=== PATIENT | male | born 1990 | race Caucasian/White ===

== ENCOUNTER 2017-02-22 11:17 | Emergency (ER) | payer BC ==
[2017-02-22 11:54] LABS: BASOPHILS % (AUTO) 0.4 %; EOSINOPHILS # (AUTO) 0.6 10^3/uL (0.0-0.7); EOSINOPHILS % (AUTO) 5.5 %; HCT - HEMATOCRIT 49.1 % (42.0-52.0); HGB - HEMOGLOBIN 17.1 g/dL (14.0-18.0); LYMPHOCYTES # (AUTO) 3.3 10^3/uL (1.5-3.5); LYMPHOCYTES % (AUTO) 32.2 %; MEAN CORPUSCULAR HEMOGLOBIN 30.1 pg (27.0-31.0); MEAN CORPUSCULAR HGB CONC 34.9 g/dL (32.0-36.0); MEAN CORPUSCULAR VOLUME 86.5 fL (80.0-94.0); MEAN PLATELET VOLUME 8.1 fL (7.4-11.4); MONOCYTES # (AUTO) 0.8 10^3/uL (0.0-1.0); MONOCYTES % (AUTO) 7.8 %; NEUTROPHILS # (AUTO) 5.6 10^3/uL (1.5-6.6); NEUTROPHILS % (AUTO) 54.1 %; NUCLEATED RED BLOOD CELLS AUTO 0.1 /100WBC; RED BLOOD COUNT 5.68 10^6/uL (4.70-6.10); UNCORRECTED WHITE BLOOD COUNT 10.3 x10^3/uL; WHITE BLOOD COUNT 10.3 x10^3/uL (4.8-10.8)
[2017-02-22 12:07] LABS: ALBUMIN/GLOBULIN RATIO 1.4 (1.0-2.2); BILIRUBIN,TOTAL 0.8 mg/dL (0.2-1.0); CALCIUM 9.7 mg/dL (8.5-10.3); CREATININE 0.7 mg/dL (0.6-1.2); POTASSIUM 3.9 mmol/L (3.5-5.0); TOTAL PROTEIN 7.8 g/dL (6.7-8.2)
[2017-02-22 12:22] LABS: BILIRUBIN,URINE NEGATIVE (NEGATIVE); UA CHARGE (STRIP ONLY) YES; UR CULTURE IF IND NOT INDICATED
--- NOTE | 2017-02-22 13:38 | ED Physician Documentation ---
PD HPI ABD PAIN - Stated complaint Stated Complaint: ABD PX - Chief complaint Chief Complaint: Abd Pain - History obtained from History obtained from: Patient - History of Present Illness Timing - onset: Other (He has had about 3 days of right upper quadrant pain which became suddenly worse about 45 minutes after eating [employer] yesterday morning at breakfast with radiated pain into the right shoulder and scapula and upper back. He tried vomiting which did not help. Any tried numerous over-the- counter remedies for stomach acid including Tums and Prilosec without relief.) Review of Systems Ten Systems: 10 systems reviewed and negative Constitutional: denies: Fever, Chills Nose: reports: Reviewed and negative Cardiac: reports: Reviewed and negative Respiratory: reports: Reviewed and negative PD PAST MEDICAL HISTORY - Past Medical History Past Medical History: Yes Cardiovascular: Coronary artery disease - Past Surgical History Past Surgical History: No - Allergies Allergies/Adverse Reactions: Allergies Allergy/AdvReac Type Severity Reaction Status Date / Time Penicillins AdvReac Rash Verified 02/22/17 11:24 - Social History Does the pt smoke?: Yes Smoking Status: Current every day smoker Does the pt drink ETOH?: No Does the pt have substance abuse?: No - Family History Family history: reports: Non contributory - Immunizations Immunizations are current?: Yes - POLST Patient has POLST: No PD ED PE NORMAL - Vitals Vital signs reviewed: Yes - General General: Alert and oriented X 3, No acute distress - HEENT HEENT: PERRL, EOMI - Neck Neck: Supple, no meningeal sign, No bony TTP - Cardiac Cardiac: RRR, No murmur - Respiratory Respiratory: No respiratory distress, Clear bilaterally - Abdomen Abdomen: No organomegaly, Other (Tender right upper quadrant with positive Wagner sign, no other surgical signs, no diffuse tenderness.) - Back Back: No CVA TTP, No spinal TTP - Derm Derm: Normal color, Warm and dry - Extremities Extremities: No deformity, No tenderness to palpate - Neuro Neuro: Alert and oriented X 3 Eye Opening: Spontaneous Motor: Obeys Commands Verbal: Oriented GCS Score: 15 - Psych Psych: Normal mood, Normal affect Results - Vitals Vitals: Vital Signs - 24 hr 02/22/17 02/22/17 02/22/17 11:22 13:54 15:42 Temperature 36.8 C 36.8 C 36.8 C Heart Rate 79 73 81 Respiratory 18 15 16 Rate Blood Pressure 156/99 H 140/87 H 131/76 H O2 Saturation 100 99 98 02/22/17 02/22/17 16:10 17:43 Temperature 36.8 C Heart Rate 60 63 Respiratory 16 15 Rate Blood Pressure 134/66 H 109/67 O2 Saturation 96 97 Oxygen O2 Source Room air - Labs Labs: Laboratory Tests 02/22/17 02/22/17 02/22/17 11:47 11:47 Unknown WBC 10.3 RBC 5.68 Hgb 17.1 Hct 49.1 MCV 86.5 MCH 30.1 MCHC 34.9 RDW 13.0 Plt Count 184 MPV 8.1 Neut # 5.6 Lymph # 3.3 [place] # 0.8 Eos # 0.6 Baso # 0.0 Absolute Nucleated RBC 0.01 Nucleated RBC % 0.1 Sodium 137 Potassium 3.9 Chloride 101 Carbon Dioxide 26 Anion Gap 10.0 BUN 11 Creatinine 0.7 Estimated GFR (MDRD) 139 Glucose 98 Calcium 9.7 Total Bilirubin 0.8 AST 27 ALT 27 Alkaline Phosphatase 71 Total Protein 7.8 Albumin 4.6 Globulin 3.2 Albumin/Globulin Ratio 1.4 Lipase 29 Urine Color YELLOW Urine Clarity CLEAR Urine pH 7.0 Ur Specific [place] 1.015 Urine Protein NEGATIVE Urine Glucose (UA) NEGATIVE Urine Ketones NEGATIVE Urine Occult Blood NEGATIVE Urine Nitrite NEGATIVE Urine Bilirubin NEGATIVE Urine Urobilinogen 0.2 (NORMAL) Ur Leukocyte Esterase NEGATIVE Ur Microscopic Review NOT INDICATED Urine Culture Comments NOT INDICATED - Rads (name of study) RUQ sono Radiology: EMP read contemporaneously (normal) CT A/P Radiology: EMP read contemporaneously (Mild Med dilated small bowel loop in the left upper quadrant proximal to a focal small bowel intussusception measuring 1.8 cm) PD MEDICAL DECISION MAKING - ED course ED course: 26-year-old gentleman with acute abdominal pain that seemed very consistent with biliary colic, however right upper quadrant ultrasound was negative as were his Labs. This was followed by CT showing small bowel intussusception. Case was discussed by phone with Dr. Foster, our on-call surgeon who recommended transfer as our operating room is down because of technical difficulties at this juncture with no estimated time of it coming back online. Call was placed [facility] for potential transfer at 4:48 PM. I spoke with Dr. Parkinson, their on-call surgeon approximately 5:05 PM, after describing the physical findings and the workup he actually declined transfer, recommending transfer to a facility with bariatric coverage. After discussion with the patient [facility] was called for potential transfer at 5:[address] Conway, at at 1745 We discussed the pros and cons of ambulance transfer with the patient and I recommended transfer by ambulance which he refused. His mother will drive him. He understands he needs to be n.p.o. Departure - Departure Disposition: 02 Transfer Acute Care Hosp Clinical Impression: Intussusception intestine Abdominal pain Qualifiers: Abdominal location: upper abdomen, unspecified Qualified Code(s): R10.10 - Upper abdominal pain, unspecified Condition: Stable Discharge Date/Time: 02/22/17 18:37
[2017-02-22] MEDS ORDERED: KETOROLAC 60 MG/2 ML VIAL IVP STA (15:35)
[2017-02-22] MEDS ORDERED: KETOROLAC 30 MG/ML VIAL ONE (15:46)
[2017-02-22] MEDS ORDERED: IOPAMIDOL-300 100 ML VIAL ONE (15:56)
--- NOTE | 2017-02-22 16:19 | CT Preliminary Report ---
Exam: CT ABDOMEN/PELVIS W/ IMPRESSION: 1. Mildly dilated small bowel loop seen in the left upper quadrant measuring 3.2 cm. This is proximal to a focal small bowel intussusception in the left upper quadrant seen on axial image 38, coronal im age 31. Length of the intussusception is 1.8 cm. Small bowel loops are decompressed distal to the int ussusception. The intussusception appears to be causing mild obstruction, could be a transient findin g. Correlate clinically. Small bowel mass not excluded and follow-up recommended. [facility] SITE ID: [id number]
--- NOTE | 2017-02-22 16:27 | CT Report ---
EXAM: CT ABDOMEN AND PELVIS EXAM DATE: 02/22/2017 04:04 PM. CLINICAL HISTORY: Right abdominal pain. COMPARISONS: Abdomen ultrasound 02/22/2017. TECHNIQUE: Routine helical CT imaging was performed through the abdomen and pelvis. IV contrast: 100 mL Isovue 300. Enteric contrast: No. Reconstructions: Coronal and sagittal. In accordance with CT protocol optimization, one or more of the following dose reduction techniques w ere utilized for this exam: automated exposure control, adjustment of mA and/or KV based on patient s ize, or use of iterative reconstructive technique. FINDINGS: Lung Bases: Unremarkable. Liver: Normal. No masses. Gallbladder/Bile Ducts: Unremarkable. Spleen: Normal. Pancreas: Normal. Adrenal Glands: Normal. Kidneys: Normal. No masses or hydronephrosis. Peritoneal Cavity/Bowel: Mildly dilated small bowel loop seen in the left upper quadrant measuring 3. 2 cm. This is proximal to a focal small bowel intussusception in the left upper quadrant seen on axia l image 38, coronal image 29. Length of the intussusception is 1.8 cm. Small bowel loops are decompre ssed distal to the intussusception. The intussusception appears to be causing mild obstruction, could be a transient finding. Correlate clinically. Small bowel mass not excluded and follow-up recommende d. No free fluid or free air. Normal appendix. Pelvic Organs: Normal. The bladder and visualized pelvic organs are within normal limits. Vasculature: No acute findings. 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 Bones: No acute bone findings. IMPRESSION: 1. Mildly dilated small bowel loop seen in the left upper quadrant measuring 3.2 cm. This is proximal to a focal small bowel intussusception in the left upper quadrant seen on axial image 38, coronal im age 31. Length of the intussusception is 1.8 cm. Small bowel loops are decompressed distal to the int ussusception. The intussusception appears to be causing mild obstruction, could be a transient findin g. Correlate clinically. Small bowel mass not excluded and follow-up recommended. [facility] Referring Provider Line: [phone] SITE ID: [id number]
[2017-02-22 17:44] VITALS: BP 109/67
[2017-02-22] MEDS ORDERED: SODIUM CHLORIDE 0.9% 1,000 ML IV ONE (17:47)
[2017-02-22] MEDS ORDERED: IOPAMIDOL-300 100 ML VIAL IVP ONE (18:30)
--- NOTE | 2017-02-27 11:42 | Ultrasound Report ---
RIGHT UPPER QUADRANT ULTRASOUND: 02/22/2017 No comparisons. INDICATION: Right upper quadrant pain. TECHNIQUE: Sonographic evaluation of the right upper quadrant was performed. FINDINGS The pancreas is poorly visualized due to bowel gas. The liver is difficult to penetrate, but appears otherwise normal in size, contour, and echogenicity. Portal venous flow is directed toward the liver. There is no ascites. The gallbladder appears unremarkable without stones, wall thickening or adjacent fluid. The common bile duct measures 3 mm. RIGHT KIDNEY: 11.9 cm. LIVER: 17 cm. IMPRESSION: ESSENTIALLY NEGATIVE RIGHT UPPER QUADRANT ULTRASOUND. MTDD
== END 2017-02-22 18:37 | disposition short-term general hospital (02) ==
LOC: ED 11:17
DX: K56.1 Intussusception (principal); R10.11 Right upper quadrant pain; I25.10 Atherosclerotic heart disease of native coronary artery without angina pectoris; F17.200 Nicotine dependence, unspecified, uncomplicated
CPT/HCPCS: 36415; 74177; 76705; 80053; 81003; 83690; 85025; 96374; 99284; 99285; Q9967; 81001; 87086

== ENCOUNTER 2017-12-16 21:17 | Emergency (ER) | payer OTHER, BC ==
[2017-12-16 21:24] VITALS: BP 156/81
--- NOTE | 2017-12-16 21:26 | ED Physician Documentation ---
PD HPI BACK PAIN - Stated complaint Stated Complaint: BACK PX - Chief complaint Chief Complaint: Back Pain - History obtained from History obtained from: Patient - History of Present Illness Timing - onset: How many weeks ago (3) Timing - duration: Weeks Timing - details: Abrupt onset Pain level max: 10 Pain level now: 9 Location: Lower, Left Quality: Pain Associated symptoms: No: Fever, Weakness, Numbness, Incontinent of urine, Unable to urinate, Hematuria, Incontinent of stool Improves with: Rest, Position Worsened by: Movement Similar symptoms before: Other (has had low back pain in the past but not this severe since sustaining injury when he was a child) Recently seen: Not recently seen - Additional information Additional information: sudden onset left low back pain 3 weeks ago when he was pulling a heavy object through a crawl space. Pain waxes and wanes but generally has been worsening in severity, frequency, and duration of episodes. Evaluated by his chiropractor recently, significant but temporary relief with spinal manipulation. Pain radiates to proximal left posterior thigh Review of Systems Constitutional: denies: Fever GI: denies: Abdominal Pain : denies: Unable to Void, Incontinent Musculoskeletal: reports: Back pain Neurologic: denies: Generalized weakness, Focal weakness, Numbness PD PAST MEDICAL HISTORY - Past Medical History Cardiovascular: Coronary artery disease - Past Surgical History Past Surgical History: No - Present Medications Home Medications: Ambulatory Orders Medication Instructions Recorded Confirmed Cyclobenzaprine [Flexeril] 10 mg PO TID PRN #20 tablet 12/16/17 Ibuprofen [Ibu] 400 mg PO ONCE 12/16/17 12/16/17 oxyCODONE/ACET 5/325 [Percocet 5 1 - 2 each PO Q6H PRN #14 tablet 12/16/17 mg/325 mg] - Allergies Allergies/Adverse Reactions: Allergies Allergy/AdvReac Type Severity Reaction Status Date / Time Penicillins AdvReac Rash Verified 12/16/17 21:24 - Social History Does the pt smoke?: Yes Smoking Status: Current every day smoker Does the pt drink ETOH?: No Does the pt have substance abuse?: No - Immunizations Immunizations are current?: Yes - POLST Patient has POLST: No PD ED PE NORMAL - Vitals Vital signs reviewed: Yes - General General: Alert and oriented X 3, Well developed/nourished, Other (appears uncomfortable due to pain) - Abdomen Abdomen: Soft, Non tender - Back Back: No CVA TTP, Other (left paralumbar tenderness to palpation) - Derm Derm: Normal color, Warm and dry, No rash - Extremities Extremities: Normal ROM s pain - Neuro Neuro: Alert and oriented X 3, 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, No motor deficit (5/5 dorsiflexion/plantarflexion), Other (2+/4 bilateral patellar DTR without clonus) Results - Vitals Vitals: Vital Signs - 24 hr 12/16/17 21:23 Temperature 36.2 C L Heart Rate 112 H Respiratory 18 Rate Blood Pressure 156/81 H O2 Saturation 100 Oxygen O2 Source Room air PD MEDICAL DECISION MAKING - ED course Complexity details: reviewed old records, considered differential, d/w patient, d/w family - Sepsis Event Vital Signs: Vital Signs - 24 hr 12/16/17 21:23 Temperature 36.2 C L Heart Rate 112 H Respiratory 18 Rate Blood Pressure 156/81 H O2 Saturation 100 Oxygen O2 Source Room air Departure - Departure Disposition: 01 Home, Self Care Clinical Impression: Sciatica Qualifiers: Laterality: left Qualified Code(s): M54.32 - Sciatica, left side Condition: Good Instructions: ED Sprain Strain Lumbar, NARCOTIC, Oral, ED Sciatica Follow-Up: Jose Casillas MD [Primary Care Provider] - Within 3 Days Prescriptions: Cyclobenzaprine [Flexeril] 10 mg PO TID PRN #20 tablet PRN Reason: Spasms oxyCODONE/ACET 5/325 [Percocet 5 mg/325 mg] 1 - 2 each PO Q6H PRN #14 tablet PRN Reason: Pain Forms: Activity restrictions Discharge Date/Time: 12/16/17 21:57
[2017-12-16] MEDS ORDERED: CYCLOBENZAPRINE 10 MG TABLET PO STA (21:42)
[2017-12-16] MEDS ORDERED: DEXAMETHASONE 10 MG/ML VIAL PO STA (21:42)
[2017-12-16] MEDS ORDERED: oxyCODONE 5 MG TABLET PO STA (21:42)
[2017-12-16] MEDS ORDERED: oxyCODONE/ACET 5/325 Prepack 4 PO STA (21:42)
[2017-12-16] MEDS ORDERED: CYCLOBENZAPRINE 10 MG Prepack 2 PO PRN (21:42)
[2017-12-16] MEDS ORDERED: CHERRY SYRUP 10 ML UDC PO ONE (21:49)
== END 2017-12-16 21:57 | disposition home or self-care (01) ==
LOC: ED 21:17
DX: S33.5XXA Sprain of ligaments of lumbar spine, initial encounter (principal); X50.0XXA Overexertion from strenuous movement or load, initial encounter; Y99.0 Civilian activity done for income or pay; I25.10 Atherosclerotic heart disease of native coronary artery without angina pectoris; F17.200 Nicotine dependence, unspecified, uncomplicated
CPT/HCPCS: 1040M; 99283; A9270

== ENCOUNTER 2017-12-19 11:37 | Outpatient (CLI) | payer OTHER, BC ==
--- NOTE | 2017-12-19 16:43 | XRAY Report ---
Reason: LUMBAR RADICULOPATHY Procedure Date: 12/19/2017 Accession Number: [id number] / [id number] Procedure: XR - Lumbar Spine 2 View CPT Code: FULL RESULT: EXAM: LUMBOSACRAL SPINE RADIOGRAPHY EXAM DATE: 12/19/2017 11:56 AM. CLINICAL HISTORY: LUMBAR RADICULOPATHY. COMPARISONS: Lumbar spine 03/22/2006 4:23 PM. TECHNIQUE: 2 views. FINDINGS: Alignment: Normal. No spondylolisthesis or scoliosis. Bones: Five [id number] lumbar vertebral bodies are present. No fractures or bone lesions. Disks: Normal. Disk heights are maintained. Facets: No degenerative changes. Sacroiliac Joints: Unremarkable. Soft Tissues: Normal. The visualized bowel gas pattern is normal. IMPRESSION: Normal lumbar spine radiography. [facility]
== END 2017-12-19 11:38 | disposition home or self-care (01) ==
LOC: DI 11:37
PROVIDERS: ATTEND Family Medicine
DX: M54.16 Radiculopathy, lumbar region (principal)
CPT/HCPCS: 72100